=== PATIENT | female | born 1975 | race Caucasian/White ===

== ENCOUNTER 2018-03-09 16:25 | Outpatient (CLI) | payer OTHER | END 2018-03-09 16:58 | disposition home or self-care (01) | LOC: LAB 16:25 | DX: D51.3 Other dietary vitamin B12 deficiency anemia (principal); D50.8 Other iron deficiency anemias; I10 Essential (primary) hypertension; D51.0 Vitamin B12 deficiency anemia due to intrinsic factor deficiency; D51.1 Vitamin B12 deficiency anemia due to selective vitamin B12 malabsorption with proteinuria; D51.8 Other vitamin B12 deficiency anemias; E06.3 Autoimmune thyroiditis; E03.8 Other specified hypothyroidism ==

== ENCOUNTER 2018-06-22 08:30 | Outpatient (CLI) | payer OTHER | END 2018-06-22 13:09 | disposition home or self-care (01) | LOC: LAB 08:30 | DX: D51.3 Other dietary vitamin B12 deficiency anemia (principal); E83.118 Other hemochromatosis; D50.8 Other iron deficiency anemias; D51.8 Other vitamin B12 deficiency anemias; I10 Essential (primary) hypertension; K90.89 Other intestinal malabsorption; E03.8 Other specified hypothyroidism; R97.0 Elevated carcinoembryonic antigen [CEA]; R97.8 Other abnormal tumor markers; D68.8 Other specified coagulation defects; E83.19 Other disorders of iron metabolism ==

== ENCOUNTER 2018-10-07 09:38 | Outpatient (CLI) | payer OTHER | END 2018-10-07 09:44 | disposition home or self-care (01) | LOC: LAB 09:38 | DX: D51.3 Other dietary vitamin B12 deficiency anemia (principal); D50.8 Other iron deficiency anemias; D51.8 Other vitamin B12 deficiency anemias; D72.818 Other decreased white blood cell count ==

== ENCOUNTER 2020-05-05 07:53 | Outpatient (CLI) | payer OTHER | END 2020-05-05 08:03 | disposition home or self-care (01) | LOC: LAB 07:53 | PROVIDERS: ATTEND Internal Medicine Hematology & Oncology | DX: D50.0 Iron deficiency anemia secondary to blood loss (chronic) (principal); D51.3 Other dietary vitamin B12 deficiency anemia; D72.818 Other decreased white blood cell count; E55.9 Vitamin D deficiency, unspecified; Z20.828 Contact with and (suspected) exposure to other viral communicable diseases; B34.8 Other viral infections of unspecified site; D50.8 Other iron deficiency anemias; I10 Essential (primary) hypertension; R74.02 Elevation of levels of lactic acid dehydrogenase [LDH]; K76.89 Other specified diseases of liver; R79.89 Other specified abnormal findings of blood chemistry ==

== ENCOUNTER → 2020-05-17 10:03 | Outpatient (CLI) | payer OTHER | END | disposition home or self-care (01) | LOC: LAB 10:03 | PROVIDERS: ATTEND Internal Medicine Hematology & Oncology | DX: N39.0 Urinary tract infection, site not specified (principal) ==

== ENCOUNTER 2020-08-05 09:36 | Outpatient (CLI) | payer OTHER | END 2020-08-05 09:42 | disposition home or self-care (01) | LOC: LAB 09:36 | PROVIDERS: ATTEND Internal Medicine Hematology & Oncology | DX: D50.0 Iron deficiency anemia secondary to blood loss (chronic) (principal); D51.3 Other dietary vitamin B12 deficiency anemia; D72.818 Other decreased white blood cell count; E83.10 Disorder of iron metabolism, unspecified; E55.9 Vitamin D deficiency, unspecified; B34.8 Other viral infections of unspecified site; E83.89 Other disorders of mineral metabolism ==

== ENCOUNTER → 2020-10-24 08:29 | Outpatient (CLI) | payer OTHER | END | disposition home or self-care (01) | LOC: LAB 08:29 | PROVIDERS: ATTEND Internal Medicine Hematology & Oncology | DX: D50.0 Iron deficiency anemia secondary to blood loss (chronic) (principal); D51.3 Other dietary vitamin B12 deficiency anemia; D72.818 Other decreased white blood cell count; E55.9 Vitamin D deficiency, unspecified; U07.1 COVID-19; B34.9 Viral infection, unspecified ==

== ENCOUNTER → 2020-10-30 | Outpatient (CLI) | payer OTHER | END | disposition home or self-care (01) | LOC: LAB 09:51 | PROVIDERS: ATTEND Internal Medicine Hematology & Oncology | DX: D50.8 Other iron deficiency anemias (principal); R79.89 Other specified abnormal findings of blood chemistry; I10 Essential (primary) hypertension; R74.02 Elevation of levels of lactic acid dehydrogenase [LDH]; K76.89 Other specified diseases of liver; D59.19 Other autoimmune hemolytic anemia; R19.5 Other fecal abnormalities; C56.9 Malignant neoplasm of unspecified ovary; R97.0 Elevated carcinoembryonic antigen [CEA]; R97.8 Other abnormal tumor markers; D51.3 Other dietary vitamin B12 deficiency anemia; D72.818 Other decreased white blood cell count; E55.9 Vitamin D deficiency, unspecified; U07.1 COVID-19; B34.8 Other viral infections of unspecified site ==

== ENCOUNTER → 2021-05-05 06:48 | Outpatient (CLI) | payer OTHER | END | disposition home or self-care (01) | LOC: LAB 06:48 | PROVIDERS: ATTEND Internal Medicine Hematology & Oncology | DX: D50.0 Iron deficiency anemia secondary to blood loss (chronic) (principal); D51.3 Other dietary vitamin B12 deficiency anemia; D72.818 Other decreased white blood cell count; E55.9 Vitamin D deficiency, unspecified; B34.8 Other viral infections of unspecified site; D50.8 Other iron deficiency anemias; R79.89 Other specified abnormal findings of blood chemistry; I10 Essential (primary) hypertension; R74.02 Elevation of levels of lactic acid dehydrogenase [LDH]; K76.89 Other specified diseases of liver ==

== ENCOUNTER 2021-08-28 07:03 | Outpatient (CLI) | payer OTHER | END 2021-08-28 07:09 | disposition home or self-care (01) | LOC: LAB 07:03 | PROVIDERS: ATTEND Internal Medicine Hematology & Oncology | DX: R79.9 Abnormal finding of blood chemistry, unspecified (principal); I10 Essential (primary) hypertension; R74.02 Elevation of levels of lactic acid dehydrogenase [LDH]; K76.89 Other specified diseases of liver; E55.9 Vitamin D deficiency, unspecified; C56.9 Malignant neoplasm of unspecified ovary; R97.8 Other abnormal tumor markers; R97.1 Elevated cancer antigen 125 [CA 125]; R97.0 Elevated carcinoembryonic antigen [CEA]; D50.0 Iron deficiency anemia secondary to blood loss (chronic); D51.3 Other dietary vitamin B12 deficiency anemia; D72.818 Other decreased white blood cell count; U07.1 COVID-19; B34.9 Viral infection, unspecified; D50.8 Other iron deficiency anemias ==

== ENCOUNTER 2022-02-24 07:23 | Outpatient (CLI) | payer OTHER | END 2022-02-24 07:24 | disposition home or self-care (01) | LOC: LAB 07:23 | PROVIDERS: ATTEND Internal Medicine Hematology & Oncology | DX: D50.8 Other iron deficiency anemias (principal); R79.9 Abnormal finding of blood chemistry, unspecified; I10 Essential (primary) hypertension; R74.02 Elevation of levels of lactic acid dehydrogenase [LDH]; K76.89 Other specified diseases of liver; C56.9 Malignant neoplasm of unspecified ovary; R97.8 Other abnormal tumor markers; R97.1 Elevated cancer antigen 125 [CA 125]; R97.0 Elevated carcinoembryonic antigen [CEA]; D50.0 Iron deficiency anemia secondary to blood loss (chronic); D51.3 Other dietary vitamin B12 deficiency anemia; D72.818 Other decreased white blood cell count; E55.9 Vitamin D deficiency, unspecified; U07.1 COVID-19; B34.9 Viral infection, unspecified ==

== ENCOUNTER 2022-04-29 07:44 | Outpatient (CLI) | payer OTHER | END 2022-04-29 07:47 | disposition home or self-care (01) | LOC: NUCLEAR 07:44 | PROVIDERS: ATTEND Family Medicine | DX: I87.2 Venous insufficiency (chronic) (peripheral) (principal); R60.0 Localized edema ==